=== PATIENT | male | born 1970 | race Two or more races ===

== ENCOUNTER 2017-11-05 08:50 | Emergency (ER) | payer SELFPAY ==
[2017-11-05 09:24] LABS: POC GLUCOSE 316 mg/dL (70-99)
[2017-11-05] MEDS: INSULIN REGULAR 100 UNIT/ML 10ML VIAL. SQ (09:48)
== END 2017-11-05 09:56 | disposition home or self-care (01) ==
LOC: ER 08:50
DX: Z76.0 Encounter for issue of repeat prescription (principal); T33.532A Superficial frostbite of left finger(s), initial encounter; T33.531A Superficial frostbite of right finger(s), initial encounter; E11.9 Type 2 diabetes mellitus without complications; X31.XXXA Exposure to excessive natural cold, initial encounter; Y93.89 Activity, other specified; Y92.89 Other specified places as the place of occurrence of the external cause; Y99.8 Other external cause status
CPT/HCPCS: 82962; 96372; 99283-25; J1815

== ENCOUNTER 2017-12-08 19:41 | Emergency (ER) | payer SELFPAY ==
[2017-12-08 20:02] LABS: AGAP ISTAT 12 mmol/L (6-14); BUN ISTAT 32 mg/dL (8-26); CHLORIDE ISTAT 103 mmol/L (98-110); CREATININE ISTAT 0.7 mg/dL (0.5-1.4); GLUCOSE ISTAT 299 mg/dL (70-99); HEMATOCRIT ISTAT 42 % (37-52); HEMOGLOBIN ISTAT 14.3 g/dL (14-18); ION CA ISTAT 1.08 mmol/L (1.13-1.32); POTASSIUM ISTAT 5.5 mmol/L (3.5-5.0); SODIUM ISTAT 135 mmol/L (135-145); TOT CO2 ISTAT 27 mmol/L (23-32)
[2017-12-08] MEDS: ONDANSETRON PF 4 MG/2 ML VIAL. IV ×2 (20:37)
[2017-12-08] MEDS: IV NORMAL SALINE 1000ML BAG 1,000 ML IV ×2 (20:38)
[2017-12-08] MEDS: fentaNYL PF VIAL 100 MCG/2 ML VIAL IV ×2 (20:38)
[2017-12-08] MEDS: IOHEXOL 300 MG/ML 100ML VIAL. IV ×2 (21:20)
[2017-12-08] MEDS ORDERED: HYDROcodone/APAP 5/325MG 1 TAB TABLET ×2 (22:36)
[2017-12-08] MEDS: HYDROcodone/APAP 5/325MG 1 TAB TABLET PO ×2 (22:39)
== END 2017-12-08 22:45 | disposition home or self-care (01) ==
LOC: ER 19:41
DX: S06.0X1A Concussion with loss of consciousness of 30 minutes or less, initial encounter (principal); M54.2 Cervicalgia; R07.89 Other chest pain; M25.512 Pain in left shoulder; E11.9 Type 2 diabetes mellitus without complications; W11.XXXA Fall on and from ladder, initial encounter; Y93.89 Activity, other specified; Y92.89 Other specified places as the place of occurrence of the external cause; Y99.8 Other external cause status
CPT/HCPCS: 36415; 70450; 71045; 71260; 72125; 72170; 73030; 74177; 80047; 85014; 85018; 96361; 96374; 96375; 99285-25; J2405; J3010; J7030; Q9967

== ENCOUNTER 2018-01-16 21:58 | Emergency (ER) | payer SELFPAY ==
[2018-01-16] MEDS: AMPICILLIN/SULBACTAM 3 GM in IV NORMAL SALINE 100ML 100 ML IV (22:33)
[2018-01-16] MEDS: fentaNYL PF VIAL 100 MCG/2 ML VIAL IV (22:33)
[2018-01-16 22:43] LABS: ADD MAN DIFF? NO
[2018-01-16 22:47] LABS: BASO # 0.1 x10^3/uL (0.0-0.2); BASO % 1 % (0-3); EOS # 0.2 x10^3/uL (0.0-0.7); EOS % 2 % (0-3); HEMATOCRIT 41.3 % (39.0-53.0); HEMOGLOBIN 13.9 g/dL (13.0-17.5); LYMPH # 2.9 x10^3/uL (1.0-4.8); LYMPH % 22 % (24-48); MEAN CORPUSCULAR HEMOGLOBIN 30 pg (25-35); MEAN CORPUSCULAR HGB CONC 34 g/dL (31-37); MEAN CORPUSCULAR VOLUME 89 fL (79-100); MONO # 1.2 x10^3/uL (0.0-1.1); MONO % 9 % (0-9); NEUT # 8.8 x10^3uL (1.8-7.7); NEUT % 67 % (31-73); PLATELET COUNT 480 x10^3/uL (140-400); RED BLOOD COUNT 4.67 x10^6/uL (4.30-5.70); RED CELL DISTRIBUTION WIDTH 12.9 % (11.5-14.5); WHITE BLOOD COUNT 13.1 x10^3/uL (4.0-11.0)
[2018-01-16 22:59] LABS: ANION GAP 7 (6-14); BLOOD UREA NITROGEN 11 mg/dL (8-26); CALCIUM 8.7 mg/dL (8.5-10.1); CARBON DIOXIDE 27 mmol/L (21-32); CHLORIDE 98 mmol/L (98-107); CREATININE 0.9 mg/dL (0.7-1.3); GFR 90.8; GLUCOSE 293 mg/dL (70-99); POTASSIUM 4.3 mmol/L (3.5-5.1); SODIUM 132 mmol/L (136-145)
== END 2018-01-17 00:12 | disposition home or self-care (01) ==
LOC: ER 01-17 00:12
DX: L03.012 Cellulitis of left finger (principal); T34.5 Frostbite with tissue necrosis of wrist, hand, and finger(s); G89.29 Other chronic pain; E11.9 Type 2 diabetes mellitus without complications; X31.XXXA Exposure to excessive natural cold, initial encounter; Y93.89 Activity, other specified; Y92.89 Other specified places as the place of occurrence of the external cause; Y99.8 Other external cause status
CPT/HCPCS: 36415; 80048; 85025; 96365; 96375; 99284-25; J0295; J3010

== ENCOUNTER 2018-01-21 14:33 | Emergency (ER) | payer SELFPAY | END 2018-01-21 15:05 | disposition left against medical advice (07) | LOC: ER 14:33 | DX: T34.532 Frostbite with tissue necrosis of left finger(s) (principal); T34.531D Frostbite with tissue necrosis of right finger(s), subsequent encounter; L03.012 Cellulitis of left finger; E11.9 Type 2 diabetes mellitus without complications; G89.29 Other chronic pain; X31.XXXD Exposure to excessive natural cold, subsequent encounter | CPT/HCPCS: 99281 ==

== ENCOUNTER 2018-12-13 12:41 | Emergency (ER) | payer SELFPAY ==
[~2018-12-13] VITALS: Ht 160 cm; Wt 68.0 kg
[~2018-12-13 12:41] MED LIST: ACET-704 PO; AMOX1TAB61 PO; DIAZ5TAB PO; HYDR-3164 PO; IBUP-1060 PO; METF10007 PO; OXYC1TAB15 PO
[2018-12-13 12:54] VITALS: BP 95/64
[2018-12-13] MEDS ORDERED: ALBUTEROL SULFATE 2.5 MG/3 ML NEBU. NEB ONE (13:30)
--- NOTE | 2018-12-13 13:42 | RAD ---
Chest radiograph 12/13/2018 1:23 PM INDICATION: Chest pain, cough and crackles at the bases COMPARISON: December 08, 2017 TECHNIQUE: Frontal and lateral views of the chest are provided. FINDINGS: The cardiomediastinal silhouette is within normal limits. There are no pleural effusions. There is no pulmonary vascular congestion. There is no pneumothorax. Patchy interstitial changes are identified at the right lung base No significant osseous abnormality is identified. IMPRESSION: Patchy interstitial changes are identified at the right lung base which may represent pulmonary infiltrate in the appropriate clinical setting. 4-6 week follow-up chest radiograph may be of benefit. Electronically signed by: Reta Harrell MD (12/13/2018 1:37 PM) [facility]
[2018-12-13] MEDS ORDERED: AZIT250T PO (14:15)
[2018-12-13] MEDS ORDERED: ALBU2.5V8 INH (14:15)
[2018-12-13] MEDS ORDERED: BENZ100C PO (14:15)
--- NOTE | 2018-12-13 14:15 | PHYS DOC ---
Past Medical History Past Medical History: No Pertinent History Past Surgical History: No Surgical History Alcohol Use: Occasionally Drug Use: None Adult General Chief Complaint Chief Complaint: FLU SYMPTOM HPI HPI Patient is a 47 year old [f__sex] who presents with [] Review of Systems Review of Systems Constitutional: Denies fever or chills [] Eyes: Denies change in visual acuity, redness, or eye pain [] HENT: Denies nasal congestion or sore throat [] Respiratory: Denies cough or shortness of breath [] Cardiovascular: No additional information not addressed in HPI [] GI: Denies abdominal pain, nausea, vomiting, bloody stools or diarrhea [] : Denies dysuria or hematuria [] Musculoskeletal: Denies back pain or joint pain [] Integument: Denies rash or skin lesions [] Neurologic: Denies headache, focal weakness or sensory changes [] Endocrine: Denies polyuria or polydipsia [] All other systems were reviewed and found to be within normal limits, except as documented in this note. Current Medications Current Medications Current Medications Medications (Trade) Dose Ordered Sig/Patricia Start Time Stop Time Status Last Admin Dose Admin Albuterol Sulfate (Ventolin Neb Soln) 2.5 mg 1X ONCE 12/13/18 13:30 12/13/18 13:31 DC 12/13/18 13:39 2.5 MG Allergies Allergies Allergies Coded Allergies Type Severity Reaction Last Updated Verified No Known Drug Allergies 11/05/17 No Physical Exam Physical Exam Constitutional: Well developed, well nourished, no acute distress, non-toxic appearance. [] HENT: Normocephalic, atraumatic, bilateral external ears normal, oropharynx moist, no oral exudates, nose normal. [] Eyes: PERRLA, EOMI, conjunctiva normal, no discharge. [] Neck: Normal range of motion, no tenderness, supple, no stridor. [] Cardiovascular:Heart rate regular rhythm, no murmur [] Lungs & Thorax: Bilateral breath sounds clear to auscultation [] Abdomen: Bowel sounds normal, soft, no tenderness, no masses, no pulsatile masses. [] Skin: Warm, dry, no erythema, no rash. [] Back: No tenderness, no CVA tenderness. [] Extremities: No tenderness, no cyanosis, no clubbing, ROM intact, no edema. [] Neurologic: Alert and oriented X 3, normal motor function, normal sensory function, no focal deficits noted. [] Psychologic: Affect normal, judgement normal, mood normal. [] Current Patient Data Vital Signs Vital Signs Date Time Temp Pulse Resp B/P (MAP) Pulse Ox O2 Delivery O2 Flow Rate FiO2 12/13/18 13:40 95 Room Air 12/13/18 12:54 98.2 95 18 95/64 (74) 98.2 EKG EKG [] Radiology/Procedures Radiology/Procedures PROCEDURE: CHEST PA & LATERAL Chest radiograph 12/13/2018 1:23 PM INDICATION: Chest pain, cough and crackles at the bases COMPARISON: December 08, 2017 TECHNIQUE: Frontal and lateral views of the chest are provided. FINDINGS: The cardiomediastinal silhouette is within normal limits. There are no pleural effusions. There is no pulmonary vascular congestion. There is no pneumothorax. Patchy interstitial changes are identified at the right lung base No significant osseous abnormality is identified. IMPRESSION: Patchy interstitial changes are identified at the right lung base which may represent pulmonary infiltrate in the appropriate clinical setting. 4-6 week follow-up chest radiograph may be of benefit.[] Course & Med Decision Making Course & Med Decision Making Pertinent Labs and Imaging studies reviewed. (See chart for details) [] Dragon Disclaimer Dragon Disclaimer This electronic medical record was generated, in whole or in part, using a voice recognition dictation system. Departure Departure Impression: Primary Impression: Pneumonia Disposition: 01 HOME, SELF-CARE Condition: STABLE Referrals: NO PCP (PCP) Patient Instructions: Pneumonia, Adult, [id number] Additional Instructions: Fill prescription(s) and use as directed. Recommend use of a Cool mist humidifier in room at bedtime. Alternate Tylenol or ibuprofen as needed for pain /fever. Increase clear fluids. Avoid airway triggers such as smoke, fragrance, dust, and pollen. May take [id number] cough suppressants as needed. Follow -up with your primary care doctor in 1-2 days, return to the ER symptoms worsen. Scripts Benzonatate (TESSALON PERLE) 100 Mg Capsule 1 CAP PO TID PRN for COUGH, #21 CAP 0 Refills Prov: AIDE [employer]OS [employer] 12/13/18 Azithromycin (ZITHROMAX) 250 Mg Tablet 1 PKG PO UD, #6 TAB Prov: AIDE [employer] 12/13/18 Albuterol Sulfate (Proair Hfa) 8.5 Gm Hfa.aer.ad 1-2 PUFF INH PRN Q4-6HRS PRN for SHORTNESS OF BREATH for 14 Days, #1 INHALER 0 Refills Prov: AIDE [employer] 12/13/18 Problem Qualifiers Primary Impression: Pneumonia Pneumonia type: due to unspecified organism Laterality: right Lung location : lower lobe of lung Qualified Codes: J18.1 - Lobar pneumonia, unspecified organism AIDE [employer] Dec 13, 2018 14:15
== END 2018-12-13 14:24 | disposition home or self-care (01) ==
LOC: ER 12:41
DX: J18.1 Lobar pneumonia, unspecified organism (principal)
CPT/HCPCS: 71046; 94640; 99283; J7613